=== PATIENT | male | born 1995 | race Caucasian/White ===

== ENCOUNTER 2016-11-29 20:26 | Emergency (ER) | payer OTHER ==
[2016-11-29 21:07] LABS: Urine Bilirubin Negative (NEGATIVE); Urine Blood Negative /ul (NEGATIVE); Urine Ketone Negative (NEGATIVE); Urine Nitrite Negative (NEGATIVE); Urine Protein Negative (NEGATIVE); Urine Urobilinogen 4 EU/dl (NORMAL)
[2016-11-29 21:20] LABS: Urine Appearance Slightly Cloudy; Urine Bacteria 1+; Urine Coarse Granular Cast 0-5 /LPF; Urine Color Yellow; Urine RBC None Seen /hpf (0-5); Urine WBC 0-5 /hpf (0-5)
[2016-11-29 21:21] LABS: Urine Amorphous Sediment Few - 1+ (NONE-FEW)
[2016-11-29] MEDS ORDERED: ACETAMINOPHEN 500 MG TABLET PO ONE (21:29)
--- NOTE | 2016-11-29 21:29 | ERNOTE ---
Abdominal HPI - Narrative Date of Service: 11/29/16 - General Chief Complaint: Abdominal Pain Time Seen by Provider: 11/29/16 21:26 Source: patient - Immun/Allergies/Home Medications Immunizatons: IMMUNIZATION HX Immunizations Up to Date No Allergies/Adverse Reactions: Allergies No Known Allergies Allergy (Unverified 11/29/16 20:43) Home Medications: HOME MEDICATIONS NK [No Home Medication] 11/29/16 [Last Taken Unknown] - History of Present Illness Narrative: Here for diarrhea and abdominal cramping. Diarrhea is watery and pt has not had any nausea or vomiting or fevers or chills Review of Systems - Review of Systems Constitutional: Present: no symptoms reported EYE: Present: no symptoms reported ENT: Present: no symptoms reported Respiratory: Present: no symptoms reported Cardiology: Present: no symptoms reported Gastrointestinal/Abdominal: Present: See HPI - Patient's Past Medical History Patient History - Medical: Seizures Patient History - Cardiac/Respiratory: Asthma Patient History - Cancer: No Hx of Cancer Patient History - Surgical Procedures: No surgical history - Social History Living Situations: home Smoking Status: Current every day smoker Patient requests Smoking Cessation Consult: No Initiate information on Smoking Cessation: No Alcohol Use: none Drug Use: none - Immunizations Immunizations Up to Date: No Physical Exam - Physical Exam General Appearance: Present: wd/wn, alert, no apparent distress - sitting up smiling and speaking with spouse on the phone Ears, Nose, Throat: Present: normal ENT inspection Respiratory: Present: no respiratory distress, normal breath sounds, no accessory muscle use, chest nontender, lungs clear Cardiovascular/Chest: Present: regular rate, rhythm, no murmur, normal peripheral pulses Gastrointestinal/Abdominal: Present: normal bowel sounds, nontender, nondistended, soft, no organomegaly, other - this is a completely benign abdomen , he has diarrhea ED Progress - Results and Orders Patient's Lab Results:: I have reviewed the patient's lab results. - Vital Signs Patient's Vital Signs:: I have reviewed the patient's vital signs. Vital Signs: Vital Signs 11/29/16 20:38 Temperature 37.0 C Pulse Rate 91 Respiratory 18 Rate Blood Pressure 138/80 O2 Sat by Pulse 97 Oximetry - Progress/Reassessment Chief Complaint: Abdominal Pain Plan - Plan Plan: pt has diarrhea and his abd is benign Departure - Departure Clinical Impression: Diarrhea Qualifiers: Diarrhea type: unspecified type Qualified Code(s): R19.7 - Diarrhea, unspecified Disposition: Home self-care Condition: Good Instructions: Rehydration, Adult
--- OUTSIDE RECORDS SUMMARY | 2016-11-29 21:37 | XMS REPORT | Continuity of Care Document ---
:1995 Author Organization [facility] ([facility]) Address [address] [place] [address] Phone [phone] Care Team Providers Name Role Phone Nadiramalia Meir Primary Care Provider [phone] Source Comments This disclosure is being made pursuant to the Care Everywhere program, applicable federal and state laws, and may not contain all informaitonavailable regarding this patient.[facility] ([facility]) Active Allergies and Adverse Reactions No Known Allergies Current Medications Prescription Sig. Disp. Refills Start Date End Date Status acetaminophen 325 mg Take 325 mg by Active tablet mouth every 4 hours as needed. Active Problems Problem Noted Date Convulsions 08/20/2015 Intractable chronic cluster headache 08/17/2015 Hyperopia of both eyes with astigmatism 08/17/2015 Resolved Problems Problem Noted Date Resolved Date Shaking spells 08/20/2015 08/22/2015 Immunizations Name Dates Previously Given Next Due Tdap 12/14/2015 Social History Tobacco Use Types Packs/Day Years Used Date Current Every Day Smoker Cigarettes 0.5 2 Quit: 11/18/2014 Smokeless Tobacco: Never Used Tobacco Cessation:Counseling Given: Yes Comments: Alcohol Use Drinks/Week oz/Week Comments No 0 Standard drinks or equivalent 0.0 last drank 9 months ago Last Filed Vital Signs Vital Sign Reading Time Taken Blood Pressure 123/76 05/21/2016 8:57 AM CDT Pulse 79 05/21/2016 8:57 AM CDT Temperature 36.6 C (97.9 F) 09/06/2015 2:52 PM [employer] Respiratory Rate 16 09/06/2015 4:00 PM [employer] Height 1.829 m (6' 0.01") 05/21/2016 8:57 AM CDT Weight 63.6 kg (140 lb 3.4 oz) 05/21/2016 8:57 AM CDT Body Mass Index 19.01 05/21/2016 8:57 AM CDT Oxygen Saturation 100% 09/06/2015 4:00 PM [employer] Plan of Care Date Type Specialty Providers Description 05/20/2017 Appointment Neurology Abraham Sanchez MD Chief Comp: Patient Reported Reason For Visit Health Maintenance Due Date Last Done Comments Hepatitis B Vaccine (1 of 3 - Primary Series) 1995 HPV Vaccine (1 of 3 - Male 3 Dose Series) 2004 Lipid Disorder Screening 2011 MMR Vaccine 2011 Varicella Vaccine (1 of 2 - Adult - No Evidence of 2011 Immunity) Pneumococcal Vaccine (1 of 1 - PPSV23) 2012 Influenza Vaccine: Seasonal (#1) 03/26/2016 Td Vaccine 12/13/2025 12/14/2015 Tdap Vaccine Completed 12/14/2015 Results from Last 3 Months Not on file
--- OUTSIDE RECORDS SUMMARY | 2016-11-29 21:37 | XMS REPORT | Continuity of Care Document ---
:1995 Author Organization [email or web address] [place] [address] Care Team Providers Name Role Phone Meir Mckeon Primary Care Provider [phone] Source Comments This disclosure is being made pursuant to the [employer] program and maynot contain all information available regarding this patient.[email or web address] Active Allergies and Adverse Reactions No Known Allergies Current Medications Be aware that medications may not be up to date as of this document. Alwaysverify current medications with the patient. Prescription Sig. Disp. Refills Start Date End Date Status permethrin (ELIMITE) 5 % Apply to all 60 g 0 10/18/2016 Active cream skin from neck down, wash off after 12 hours triamcinolone (KENALOG) Apply to rash 30 g 2 10/18/2016 Active 0.1 % cream BID diphenhydrAMINE Take 1 tablet 30 tablet 1 10/18/2016 Active (BENADRYL) 25 MG tablet by mouth every 6 (six) hours as needed for Itching. permethrin (ELIMITE) 5 % Apply neck 60 g 0 10/27/2016 Active cream down, leave on overnight, wash off in the morning hydrOXYzine pamoate Take 1 capsule 30 capsule 0 10/27/2016 Active (VISTARIL) 25 MG capsule by mouth 3 (three) times daily as needed for Itching. Active Problems No known active problems Most Recent Encounters Date Type Specialty Providers Description 11/19/2016 Data Import 10/27/2016 Office Visit Urgent Care Areli Cook Scabies (Primary Dx) [employer] 10/18/2016 Office Visit Family Medicine Meir Mckeon Scabies (Primary Dx) 09/22/2016 Hospital Encounter Emergency Medicine Contact dermatitis due to other agent (Primary Dx); Personal history of tobacco use, presenting hazards to health Social History Tobacco Use Types Packs/Day Years Used Date Former Smoker Cigarettes 0.5 10 Quit: 12/02/2014 Smokeless Tobacco: Never Used Alcohol Use Drinks/Week oz/Week Comments No 0 Standard drinks or equivalent 0.0 Alcoholic Drinks/day: No: Noted on [id number] Last Filed Vital Signs Vital Sign Reading Time Taken Blood Pressure 108/69 10/27/2016 9:57 AM [employer] Pulse 97 10/27/2016 9:57 AM [employer] Temperature 36.6 C (97.8 F) 10/27/2016 9:57 AM [employer]ER [employer] Respiratory Rate 16 09/22/2016 8:51 PM [employer] Height 1.803 m (5' 11") 10/27/2016 9:57 AM [employer]ER [employer] Weight 67.586 kg (149 lb) 10/27/2016 9:57 AM [employer] Body Mass Index 20.79 10/27/2016 9:57 AM [employer]ER [employer] Oxygen Saturation 99% 10/27/2016 9:57 AM [employer]ER [employer]EC[employer] Plan of Care Health Maintenance Due Date Last Done Comments HPV Vaccine (9-26YO) (1 of 3 - Male 3 Dose Series) 2004 Tetanus/Pertussis (1 - Tdap) 2012 Influenza Immunization (#1) 2016 Results from Last 3 Months Not on file
[2016-11-29 21:42] VITALS: BP 117/63
== END 2016-11-29 21:40 | disposition home or self-care (01) ==
LOC: ER 20:26
DX: R19.7 Diarrhea, unspecified (principal); F17.210 Nicotine dependence, cigarettes, uncomplicated